=== PATIENT | female | born 1960 | race Caucasian/White ===

== ENCOUNTER 2016-04-06 01:25 | Inpatient (IN) | payer OTHER ==
--- NOTE | 2016-04-04 14:06 | History & Physical Pre-Op ---
General Information and HPI History of Present Illness: patient presents for evaluation of diverticulitis. She relates a 1 year history of slowly progressive left lower quadrant abdominal pain and worsening constipation. In the past 9 months she has required multiple medications to improve her bowel function. She complains of intermittent left lower quadrant abdominal pain that is relieved with bowel movements. In the past few months she 's had 2 episodes of severe pain that were responsive to treatment empirically with oral antibiotics for diverticulitis. She has undergone 2 [address] scans in the past year both of which show severe diverticulosis without active inflammatory changes, both of which were personally reviewed. She had a colonoscopy last year which showed a focal angulation in her sigmoid colon. Follow-up colonoscopy three months ago showed sigmoid stricture at the area of angulation with evidence of active inflammation. Biopsies were benign. Allergies/Medications Allergies: Coded Allergies: acetaminophen (From PERCOCET) (UNKNOWN 03/31/16) codeine (NAUSEA, TIGHT CHEST 03/31/16) hydromorphone (From DILAUDID) (UNKNOWN 03/31/16) morphine (CHEST TIGHTENING 03/31/16) oxycodone (From PERCOCET) (UNKNOWN 03/31/16) Home Med list Albuterol Sulfate (Albuterol Sulfate Hfa) 0.09 MG/Actuation DAVID 2 PUFF INH Q4- 6 PRN PRN SHORTNESS OF BREATH (Reported) 90 MCG PER PUFF Atorvastatin Calcium (Lipitor) 10 MG TAB 1 TAB PO DAILY CHOLESTEROL (Reported ) Budesonide/Formoterol Fumara (Symbicort 160-4.5 Mcg Inhaler) 160 MCG/4.5 MCG PUF 2 PUF INH BID BREATHING PROBLEMS (Reported) Diazepam 10 MG TABLET 1 TAB PO BID ANXIETY (Reported) Escitalopram Oxalate 20 MG TAB 1 TAB PO DAILY MENTAL HEALTH (Reported) Hydrochlorothiazide (Hydrodiuril 12.5 MG Tab) 12.5 MG HTAB 1 CAP PO DAILY HEART (Reported) Hydroxyzine Pamoate (Vistaril) (Unknown Strength) CAPSULE 50 MG PO AD PRN ITCHING (Reported) Levothyroxine Sodium 137 MCG TABLET 1 TAB PO DAILY THYROID (Reported) Lisinopril 10 MG TAB 1 TAB PO DAILY HEART (Reported) Multivitamin (Multi-Day Vitamins) 1 EACH TABLET 1 TAB PO DAILY SUPPLEMENT ( Reported) [place]-3S/Dha/Epa/Fish Oil (Fish Oil 1,200 MG Softgel) (Unknown Strength) CAPSULE (Unknown Dose) PO DAILY SUPPLEMENT (Reported) Omeprazole 40 MG CAPSULE.DR 1 CAP PO DAILY GERD (Reported) Pantoprazole Sodium 40 MG TABLET.DR 1 TAB PO DAILY GERD (Reported) Tiotropium [place] (Spiriva) 18 MCG CAP 1 CAP INH DAILY BREATHING PROBLEMS ( Reported) Past History Medical History Neurological: NONE EENT: NONE Cardiovascular: hypertension, hyperlipidemia Respiratory: COPD Gastrointestinal: colitis, ACID REFLUX Hepatic: cholelithiasis Renal: NONE Musculoskeletal: NONE Psychiatric: anxiety, depression Endocrine: hypothyroidism, obesity Blood Disorders: NONE Cancer(s): NONE 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 She reports no fatigue, no fever, no night sweats, no significant weight loss, and no exercise intolerance. She reports no abnormal moles, no jaundice, no hives, no eczema, and no rashes. She reports no swollen glands and no neck stiffness. She reports no cough, no wheezing, no shortness of breath, and no coughing up blood. She reports no chest pain, no arm pain on exertion, no shortness of breath when walking, no shortness of breath when lying down, no palpitations, and no leg swelling. She reports no incontinence, no difficulty urinating, no hematuria, and no increased frequency. She reports no muscle aches, no muscle weakness, no arthralgias/joint pain, and no back pain. She reports no gynecologic complaints. She reports no issues with sexual function or body image. Exam & Diagnostic Data Physical Exam: Patient is a 55-year-old female. Constitutional: General Appearance: healthy-appearing and morbidly obese. Level of Distress: no acute distress. Ambulation: ambulating normally. Head: Head: normocephalic and atraumatic. Neck: Neck: supple, trachea midline, no masses, and full range of motion. Thyroid: no enlargement or nodules and non-tender. Lymph Nodes: no cervical LAD, supraclavicular LAD, axillary LAD, or inguinal LAD. Cardiovascular: Heart Auscultation: normal S1 and S2; no murmurs, rubs, or gallops; and regular rate and rhythm. Lungs: Respiratory effort: no dyspnea. Percussion: no dullness, flatness, or hyperresonance. Auscultation: no wheezing, rales/crackles, or rhonchi and breath sounds normal, good air movement, and clear to auscultation. Back: Thoracolumbar Appearance: normal curvature. Abdomen: Inspection and Palpation: no tenderness, guarding, masses, rebound tenderness, or CVA tenderness and soft and non-distended. Bowel Sounds: normal. Liver: non-tender and no hepatomegaly. Spleen: non-tender and no splenomegaly. Hernia: none palpable. Skin: Inspection and palpation: no rash, lesions, ulcer, induration, nodules, jaundice, or abnormal nevi and good turgor. Musculoskeletal:: Extremities: no cyanosis, edema, varicosities, or palpable cord. Motor Strength and Tone: normal tone and motor strength. Joints, Bones, and Muscles: no contractures, malalignment, tenderness, or bony abnormalities and normal movement of all extremities. Psychiatric: Insight: good judgement and insight. Mental Status: normal mood and affect and active and alert. Orientation: to time, place, and person. Memory: recent memory normal and remote memory normal. Assessment/Plan Assessment/Plan: Diverticulitis of sigmoid colon - she likely has chronic low-grade disease which has progressed to colonic stricture. Majority of her symptoms are related to stricture and difficulty in passage of stool. There is likely underlying chronic diverticulitis as to the etiology. I recommend sigmoid colectomy, as she will likely develop colonic obstruction. The approach would be best performed laparoscopically although given her body habitus and chronic inflammatory changes conversion rate to open would be higher than usual. She would like to postpone surgery until after the upcoming holidays. We will plan for her operation to proceed in late March Discussion Notes Discussed the risk of surgery including but not limited to: bleeding requiring transfusion, infection, anastomotic leak requiring reoperation as well as medical complications including cardiac, pulmonary and thromboembolism. As Ranked By This Provider Problem List: 1. Diverticulitis large intestine w/o perforation or abscess w/o bleeding
[~2016-04-06] VITALS: Ht 165.1 cm; Wt 102.1 kg
[~2016-04-06 01:25] MED LIST: ALBUTEROL0.09 MG/A1 INH; ATIVAN1 MG PO; ATORVASTATIN CA10 MG PO; DIAZEPAM10 M1 PO; ESCITALOPRAM20 MG PO; FISH OIL 1,2001 EAC2 PO; HYDROCODONE/ACE1 TA1 PO; HYDRODIURIL 112.5 M1 PO; IBU600 MG PO; LEVOTHYROXIN0.125 MG PO; LEVOTHYROXINE137 MCG PO; LISINOPRIL10 MG PO; MULTI-DAY VITA1 EACH PO; OMEPRAZOLE40 M1 PO; PANTOPRAZOLE SO40 M1 PO; SPIRIVA 18 MCG18 MCG INH; SYMBICORT 160/41 PUF INH; TRAMADOL50 MG PO; VICODIN 5-3001 EACH PO; VISTARIL50 M1 PO
--- NOTE | 2016-04-06 13:34 | Admission Core Measures ---
Admission Meds I reviewed the following Meds: Current Medications Sig/Yue Start time Last Medication Dose Stop Time Status Admin Cefazolin Sodium 2,000 MG ONCE 04/06 NR (Kefzol-Ancef Inj) 04/06 2358 Metronidazole 500 MG ONCE 04/06 NR (Flagyl) 04/06 2358 Sodium Chloride 100 ML (Normal Saline 0.9%) Acute Coronary Syndrome Inclusion Criteria ACS Diagnosis No Inpatient Core Measures LDL Reminder: If No, please order W/I first 24hr of stay Congestive Heart Failure Inclusion Criteria CHF Diagnosis No Cerebrovascular accident Inclusion Criteria CVA/TIA Diagnosis No Inpatient Core Measures Bedside Swallow Eval Reminder: If BSE failed, place ST order Antithrombotic Reminder: Order Antithrombotic Medication by end of day 2 Antithrombotic Reminder: Document Reason Antithrombotic Not ordered by end of day 2 AFIB/Flutter Reminder: If Present, add to problem list AFIB/Flutter Reminder: Order Anticoag Medication for pts with AFIB/Flutter Atherosclerosis Reminder: If Present, add to problem list LDL Reminder: If No, please order W/I first 24hr of stay PT Order Reminder: If No, please order Venous thromboembolism Inpatient Core Measures VTE Risk Factors: Age > 40, Obesity, Surgery VTE Prophylaxis Ordered Inpt Mech & Pharm No Mech VTE prophylaxis d/t No contraindications No VTE Pharm Prophylaxis d/t No contraindications Inclusion Criteria - Per Current guidelines, there needs to be overlap - treatment for the first 5 days of Warfarin therapy. - Parenteral Anticoagulation (IV or SC) needs to be - given along with Warfarin therapy. VTE Diagnosis No VTE Type NONE VTE Confirmed by (Test) NONE Problem List As ranked by this Provider includes Assessment & Plan 1. Hyperlipidemia 2. Hypertension 3. Diverticulitis large intestine w/o perforation or abscess w/o bleeding 4. COPD (chronic obstructive pulmonary disease) 5. GERD (gastroesophageal reflux disease) 6. S/P laparoscopic colectomy HOME MEDS Home Med List Albuterol Sulfate (Albuterol Sulfate Hfa) 0.09 MG/Actuation DAVID 2 PUFF INH Q4- 6 PRN PRN SHORTNESS OF BREATH (Reported) Atorvastatin Calcium (Lipitor) 10 MG TAB 1 TAB PO DAILY CHOLESTEROL (Reported ) Budesonide/Formoterol Fumara (Symbicort 160-4.5 Mcg Inhaler) 160 MCG/4.5 MCG PUF 2 PUF INH BID BREATHING PROBLEMS (Reported) Diazepam 10 MG TABLET 1 TAB PO BID ANXIETY (Reported) Escitalopram Oxalate 20 MG TAB 1 TAB PO DAILY MENTAL HEALTH (Reported) Hydrochlorothiazide (Hydrodiuril 12.5 MG Tab) 12.5 MG HTAB 1 CAP PO DAILY HEART (Reported) Hydroxyzine Pamoate (Vistaril) (Unknown Strength) CAPSULE 50 MG PO AD PRN ITCHING (Reported) Levothyroxine Sodium 137 MCG TABLET 1 TAB PO DAILY THYROID (Reported) Lisinopril 10 MG TAB 1 TAB PO DAILY HEART (Reported) Multivitamin (Multi-Day Vitamins) 1 EACH TABLET 1 TAB PO DAILY SUPPLEMENT ( Reported) [place]-3S/Dha/Epa/Fish Oil (Fish Oil 1,200 MG Softgel) (Unknown Strength) CAPSULE (Unknown Dose) PO DAILY SUPPLEMENT (Reported) Omeprazole 40 MG CAPSULE.DR 1 CAP PO DAILY GERD (Reported) Pantoprazole Sodium 40 MG TABLET.DR 1 TAB PO DAILY GERD (Reported) Tiotropium [place] (Spiriva) 18 MCG CAP 1 CAP INH DAILY BREATHING PROBLEMS ( Reported)
--- NOTE | 2016-04-06 16:11 | Operative Report ---
Operative/Inv Procedure Report Surgery Date: 04/06/16 Name of Procedure: Laparoscopic sigmoid colectomy Pre-Operative Diagnosis: Chronic diverticulitis Post-Operative Diagnosis: Same Estimated Blood Loss: scant Surgeon/Billing Assistant: MARKEL GANNON,TIM Bach/Nikole MATTA Anesthesia: general endotracheal tube Specimens: Sigmoid colon Condition: Good Operative/Procedure Note Note: Patient brought to the operative laid supine. Total anesthesia was obtained, she's placed in lithotomy position and her abdomen was prepped and draped. The skin above the umbilicus was after local anesthesia and a longitudinal incision made sharply. We dissected down the fascia and grasped it with Jj's. Fasciotomies crated sharply and stay sutures placed. A blunt Smith port was placed. Pneumoperitoneum was achieved. A 5 mm port was placed in the suprapubic region, a 5 mm port was placed in the right mid abdomen, and a 12 mm port was placed in the right lower quadrant all under direct vision and after local anesthesia was instilled. He was placed in Trendelenburg and rotated towards the right. The small bowel was swept up out of the pelvis. Distal sigmoid colon was adherent to the pelvic structures with was wispy inflammatory adhesions. These were taken down with cautery. There was a nodularity of the area in question, associated with fibrosis and thickening. It was limited to a 5-6 cm segment of distal sigmoid colon. We therefore marked areas distal and proximal to denote normal bowel. Mesentery was then scored medially to serve as a line of transection. We then took down the white line of Toldt with electrocautery. Left ureter was identified and preserved throughout its course. We took the dissection down to the pelvis and then up to the level of the splenic flexure. Splenic flexure was not taken down. There was plenty of colon to create an end and anastomosis without attention. Therefore scored the mesentery and took down the mesentery up to the proximal transection margin level of the bowel. This was performed with the LigaSure device. I then took down the sigmoidal arteries as they coursed down into the pelvis. The mesentery was then divided up to the rectosigmoid junction with the LigaSure device. The rectosigmoid junction was then divided with a ROSARIO 45 stapler. We then removed bring up the cut end of the bowel and then bring down were were the proposed anastomotic site proximally to ensure that we had adequate length. We did. Therefore this time a small Pfannenstiel incision was made sharply and subcutaneous tissues were dissected with cautery. The fascia was incised longitudinally in the midline and a Jonathan retractor placed. The bowel was brought up through the wound and transected with stapler. Specimen was passed off the field. The automatic pursestring was placed staple line cut. We then open the bowel and sized it to a 28 mm EEA. The ampules placed and pursestring tied down. The fatty tissue overlying the proposed anastomotic site was then taken off with cautery. A single diverticulum was brought up into the center of the pursestringer to get out of the anastomotic site. We then replaced the bowel back in the peritoneal cavity and closed the fascia with a running 0 Maxon suture. Pneumoperitoneum was then reachieved. I went down below and performed rigid proctoscopy. We then brought the EEA stapler up through the rectum to the rectal stump. An end-to-end anastomosis was then created. There were 2 intact donuts. The anastomosis was tested under water and there is no evidence of gas leak. I then scrubbed back in and irrigated the peritoneal cavity. Hemostasis was adequate. The 12 mm ports were closed with 0 Vicryl suture. Skin incisions closed with 4-0 Vicryl. Steri-Strips and sterile dressing applied. Sponge and needle counts are correct Findings: Focal chronic inflammation of the distal sigmoid colon CC: BROOKE GANNON,RYAN Piedra; CHANTELL GANNON,MANDI Polo
[2016-04-06 17:45] VITALS: BP 116/70
--- NOTE | 2016-04-06 17:45 | NUR ---
PT ARRIVED TO ROOM 229-2 AT 1745 VIA STRETCHER FROM PACU. UPON ARRIVAL, PT A/V/OX3. [place] DRESSING TO LOWER ABD AND 3 BANDAIDS TO ABD, INTACT. PT DENIES ANY PAIN AT THIS TIME. BOTTOM INTACT. LUNGS CLEAR. VSS. #20 LH INFUSING WITH D51/2NS 20 MEQK PER EMAR. HOUSE PATENT AND DRAINING CLEAR, YELLOW URINE TO GRAVITY. FAMILY AT BEDSIDE. WILL CONTINUE TO MONITOR.
--- NOTE | 2016-04-06 18:31 | NUR ---
CHARGE NURSE AND CHAINSTITCH SEAT JOINER AWARE OF AMOUNT OF VISITORS IN PATIENTS ROOM. CHARGE NURSE IN TO SPEAK WITH FAMILY ABOUT IMPORTANCE OF PATIENT'S CARE AND IMPORTANCE OF PT BEING ABLE TO PARTICIPATE IN CARE WITHOUT DISRUPTIONS. PT AND VISITORS UNDERSTAND POC. WILL CONTINUE TO MONITOR.
[2016-04-06 19:54] VITALS: BP 114/80
--- NOTE | 2016-04-06 20:23 | NUR ---
PT STATES SHE IS IN PAIN 08/20 IN HER ABD. PT EDUCATED ON PAIN MEDICATIONS ORDERED FOR HER. PT STATING "I DONT WANT IV TYLENOL OR IV DILAUDID SO DONT BRING THOSE IN" "I WAS TOLD I CAN HAVE WHAT I HAD DOWNSTAIRS UP HERE, CALL THE DOCTOR AND GET IT ORDERED FOR ME" SURG PAXTON LAY NOTIFIED. NEW ORDERS FOR DEMEROL ACKNOWLEDGED. PT AWARE. WILL CONTINUE TO MONITOR.
--- NOTE | 2016-04-06 20:31 | NUR ---
VERIFIED DEMEROL ORDER WITH PHARMACY. PER PHARMACY, OK TO GIVE IV PUSH WHEN DILUTED PER INSTRUCTIONS ON EMAR. WILL CONTINUE TO MONITOR.
--- NOTE | 2016-04-06 21:10 | PN- General Surgery ---
Subjective Subjective: poc s/p lap assist sigmoid colectomy sitting up in bed no major complaints denies cp, sob, no n+v with clears Objective Vital Signs and I&Os Vital Signs Date Time Temp Pulse Resp B/P Pulse O2 O2 Flow FiO2 Ox Delivery Rate 04/06 1953 97.7 94 20 114/80 92 Room Air 04/06 1744 97.5 96 18 116/70 93 Nasal 2.0L Cannula 04/06 1744 93 Nasal 2.0L Cannula Physical Exam: cv: rrr lungs: clear abd: soft, obese no guarding to palp drsg dry ext; warm, no edema distal cms intact shah: clear urine Assessment/Plan Assessment/Plan surgical stable refusing all pain meds except demoral plan cont clears ok to be oob to chair demoral iv for pain tonight will discuss po options in am Core Measures/Miscellaneous Venous Thromboembolism VTE Risk Factors: Age > 40, Obesity, Surgery VTE Contraindications: No Contraindications VTE Prophylaxis Ordered Inpt Mech & Pharm VTE Diagnosis: No VTE Type: NONE VTE Confirmed by (Test): NONE Beta Epifanio Is Beta Epifanio a Home Med? No Antibiotics Is Patient on Antibiotics? Yes
--- NOTE | 2016-04-06 21:20 | NUR ---
PT COMPLAINS OF BEING UNCOMFORTABLE BECAUSE OF THE HOUSE CATHETER. PT STATES "CAN I HAVE IT OUT, I CAN WALK TO THE BATHROOM FINE". SURG PA ROSANNE NOTIFIED OF PTS COMPLAINT. PER SURG PA, TO KEEP HOUSE IN OVERNIGHT AND REMOVE IN AM. PT AWARE OF POC. WILL CONTINUE TO MONITOR.
--- NOTE | 2016-04-06 22:18 | NUR ---
SMELL OF SMOKE COMING FROM PTS ROOM. CHARGE NURSE AWARE & IN TO ROOM. 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 TO BE LOCKED IN MED ROOM. WILL PASS ON TO NEXT SHIFT RN. WILL CONTINUE TO MONITOR.
[2016-04-06 22:32] VITALS: BP 112/70
[2016-04-07 00:37] VITALS: BP 110/70
[2016-04-07 03:43] VITALS: BP 106/66
[2016-04-07 05:45] VITALS: BP 100/60
--- NOTE | 2016-04-07 07:58 | PN- General Surgery ---
See Addendum Subjective Subjective: Awake, alert Ambulated this morning and passed gas already Wants shah out, wants to eat and go home Pain well controlled on demerol IV and toradol overnight Objective Vital Signs and I&Os Vital Signs Date Time Temp Pulse Resp B/P Pulse O2 O2 Flow FiO2 Ox Delivery Rate 04/07 0545 98.7 90 20 100/60 94 Nasal 2.0L Cannula 04/07 0343 97.7 76 16 106/66 95 Nasal 2.0L Cannula 04/07 0037 97.7 89 20 110/70 94 Nasal 2.0L Cannula 04/07 0000 Nasal 2.0L Cannula 04/06 2232 98.0 102 20 112/70 94 Nasal 2.0L Cannula 04/06 1954 97.7 94 20 114/80 92 Room Air 04/06 174 97.5 96 18 116/70 93 Nasal 2.0L Cannula 04/06 174 93 Nasal 2.0L Cannula Intake & Output 04/07 0800 04/07 0000 04/06 1600 04/06 0800 04/06 0000 04/05 1600 Intake Total 1480 1225 Output Total 850 400 Balance 630 825 Intake, IV 1000 625 Intake, Oral 480 600 Output, Urine 850 400 Patient 225 lb Weight Physical Exam: Urine output good vss, afebrile General: alert and oriented Chest: clear anteriorly bilaterally, RRR Abd: softly distended, hypoactive bs but present Wounds: dressed, dry Ext: warm, no edema Assessment/Plan Assessment/Plan 55 yo female s/p sigmoid colectomy for diverticulitis dc shah change pain meds to po demerol with IV for breakthrough - pt has numerous narcotic allergies continue valium tid as at home hep sc for dvt ppx no further abx ?advance diet - will discuss with Dr Haro Core Measures/Miscellaneous Venous Thromboembolism VTE Risk Factors: Age > 40, Obesity, Surgery VTE Contraindications: No Contraindications VTE Prophylaxis Ordered Inpt Mech & Pharm VTE Diagnosis: No VTE Type: NONE VTE Confirmed by (Test): NONE Beta Epifanio Is Beta Epifanio a Home Med? No Antibiotics Is Patient on Antibiotics? No
[2016-04-07 08:00] LABS: ABSOLUTE BASOPHIL COUNT 0 /CUMM (0.0-0.2); ABSOLUTE EOSINOPHIL COUNT 0 /CUMM (0.0-0.7); ABSOLUTE LYMPH COUNT 0.9 /CUMM (1.2-3.4); ABSOLUTE MONOCYTE COUNT 0.5 /CUMM (0.10-0.60); BASOPHIL % 0.1 % (0.0-2.0); EOSINOPHIL % 0.1 % (0-5); HEMATOCRIT 35.4 % (37-47); MEAN CORPUSCULAR HGB 29.9 PG (27.0-31.0); MEAN CORPUSCULAR HGB CONC 33.5 G/DL (33.0-37.0); MEAN CORPUSCULAR VOLUME 89.4 FL (81.0-99.0); MEAN PLATELET VOLUME 7.9 FL (7.4-10.4); PLATELET COUNT 292 /CUMM (130-400); RBC DISTRIBUTION WIDTH 15.3 % (11.5-14.5); RED BLOOD CELL CT 3.96 /CUMM (4.20-5.40); WHITE BLOOD CELL COUNT 10.4 /CUMM (4.8-10.8)
[2016-04-07 08:35] LABS: GRANULOCYTE % 86.6 % (42.2-75.2)
--- NOTE | 2016-04-07 08:39 | NUR ---
08:40 HOUSE D/C'D OUTPUT FROM HOUSE - 200 ML
[2016-04-07 13:46] VITALS: BP 114/72
--- NOTE | 2016-04-07 16:04 | NUR ---
0900 - PATIENT VOIDED 200 MLS AFTER HOUSE REMOVAL
--- NOTE | 2016-04-07 16:57 | NUR ---
PT'S SISTER REQUESTING THAT SHE TAKE THE CIGARETTES HOME WITH HER. CIGARETTES TAKEN FROM MED ROOM AND GIVEN TO SISTER TO BE TAKEN HOME. CHARGE NURSE AWARE. WILL CONTINUE TO MONITOR.
--- NOTE | 2016-04-07 17:20 | NUR ---
REPORTS THAT PT WALKED TO BATHROOM ON B SIDE AND SISTER HANDED PT A CIGARETTE, REPORTS OF SMOKE COMING FROM BATHROOM. CHARGE NURSE IN TO SEE PT. CHARGE NURSE TOOK CIGARETTES AWAY FROM PT AND LOCKED IN MED ROOM. WILL CONTINUE TO MONITOR.
[2016-04-07 22:00] VITALS: BP 112/62
[2016-04-08 06:42] VITALS: BP 118/64
--- NOTE | 2016-04-08 07:14 | PN- General Surgery ---
Subjective Subjective: Reports gas pains this morning. Tolerated some food yesterday. No nausea overnight. +bm this morning. She is passing flatus. Ambulating well. No dizziness. No shortness of breath. No chest pains. Objective Vital Signs and I&Os Vital Signs Date Time Temp Pulse Resp B/P Pulse O2 O2 Flow FiO2 Ox Delivery Rate 04/08 0642 97.6 86 20 118/64 92 04/07 2200 98.6 96 18 112/62 93 Room Air 04/07 1346 98.8 96 20 114/72 93 04/07 0924 90 128/72 04/07 0836 Nasal 2.0L Cannula 04/07 0800 97 Nasal 2.0L Cannula Intake & Output 04/08 0800 04/08 0000 04/07 1600 04/07 0800 04/07 0000 04/06 1600 Intake Total 002 603 8370 1225 Output Total 550 400 850 400 Balance 50 -280 630 825 Intake, IV 1000 625 Intake, Oral 600 120 480 600 Number 1 Bowel Movements Output, Urine 550 400 850 400 Patient 225 lb Weight Physical Exam: General - alert & oriented x 3. comfortable. no acute distress. Lungs - clear bilaterally. no w/r/r. Cardiac - s1s2. reg. Abdomen - soft. bowel sounds appreciated. incisional tenderness, as expected. dressings removed. steri strips in place. no erythema. no exudates. Extremities - warm bilaterally. no c/c/e. calves soft and nontender b/l. Assessment/Plan Assessment/Plan This 55 year old female is POD#2 s/p laparoscopic sigmoid colectomy for chronic diverticulitis to try low residue diet this morning pain controlled. asking for vicodin and motrin upon discharge dressings removed. incisions covered with steri strips colace bid added oob/ambulating well hep sc - dvt ppx f/u labs likely d/c home today if tolerating low residue diet will d/w Core Measures/Miscellaneous Venous Thromboembolism VTE Risk Factors: Age > 40, Obesity, Surgery VTE Contraindications: No Contraindications VTE Prophylaxis Ordered Inpt Mech & Pharm VTE Diagnosis: No VTE Type: NONE VTE Confirmed by (Test): NONE Beta Epifanio Is Beta Epifanio a Home Med? No Antibiotics Is Patient on Antibiotics? No
[2016-04-08] MEDS ORDERED: NORCO 5-325 TA1 EACH PO (07:30)
[2016-04-08] MEDS ORDERED: DOCUSATE SODIU100 M3 PO (07:30)
[2016-04-08] MEDS ORDERED: IBUPROFEN600 M1 PO (07:30)
--- NOTE | 2016-04-08 07:32 | Patient Discharge Instructions ---
Discharge Instructions General Discharge Information You were seen/treated for: Chronic diverticulitis You had these procedures: Surgery Date: 04/06/16 Name of Procedure: Laparoscopic sigmoid colectomy Watch for these problems: fever>101.3, increased pain, redness/swelling/drainage No bath, but you may shower: Yes Other wound care: ok to shower. leave white steris strips in place. keep incisions clean & dry. Diet Continue normal diet: Yes Recommended Diet: Low Residue Activity Full Activity/No Limits: No Activity Self Limited: Yes Pounds, do NOT lift more than: 10 Other activity limits: no heavy lifting. no strenuous activity. Additional ACTIVITY Info: walk frequently Acute Coronary Syndrome Inclusion Criteria At DC or during hospital stay patient has or had the following: ACS DIAGNOSIS No Discharge Core Measures Meds if any: Prescribed or Continued at Discharge Meds if any: NOT Prescribed or Continued at Discharge Congestive Heart Failure Inclusion Criteria At DC or during hospital stay patient has or had the following: CHF DIAGNOSIS No Discharge Core Measures Meds if any: Prescribed or Continued at Discharge Meds if any: NOT Prescribed or Continued at Discharge Cerebrovascular accident Inclusion Criteria At DC or during hospital stay patient has or had the following: CVA/TIA Diagnosis No Discharge Core Measures Meds if any: Prescribed or Continued at Discharge Meds if any: NOT Prescribed or Continued at Discharge Venous thromboembolism Inclusion Criteria VTE Diagnosis No VTE Type NONE VTE Confirmed by (Test) NONE Discharge Core Measures - Per Current guidelines, there needs to be overlap - treatment for the first 5 days of Warfarin therapy. - If discharged on Warfarin prior to 5 days of - overlap therapy, the patient will need to be - assessed for post discharge needs including - *Post discharge parental anticoagulation - *Warfarin and/or parental anticoagulation education - *Follow up date to check INR post discharge At least 5 days overlap therapy as Inpatient No Meds if any: Prescribed or Continued at Discharge Note: Overlap Therapy is Warfarin and Anticoagulant Meds if any: NOT Prescribed or Continued at Discharge
[2016-04-08 07:56] LABS: ABSOLUTE BASOPHIL COUNT 0 /CUMM (0.0-0.2); ABSOLUTE EOSINOPHIL COUNT 0.1 /CUMM (0.0-0.7); ABSOLUTE GRANULOCYTE CT 4.1 /CUMM (1.4-6.5); ABSOLUTE LYMPH COUNT 2.2 /CUMM (1.2-3.4); ABSOLUTE MONOCYTE COUNT 0.5 /CUMM (0.10-0.60); BASOPHIL % 0.6 % (0.0-2.0); EOSINOPHIL % 1.2 % (0-5); GRANULOCYTE % 59.1 % (42.2-75.2); HEMATOCRIT 31.3 % (37-47); MEAN CORPUSCULAR HGB 30.1 PG (27.0-31.0); MEAN CORPUSCULAR HGB CONC 33.9 G/DL (33.0-37.0); MEAN CORPUSCULAR VOLUME 88.9 FL (81.0-99.0); MEAN PLATELET VOLUME 8.3 FL (7.4-10.4); PLATELET COUNT 246 /CUMM (130-400); RBC DISTRIBUTION WIDTH 15.8 % (11.5-14.5); RED BLOOD CELL CT 3.52 /CUMM (4.20-5.40); WHITE BLOOD CELL COUNT 6.9 /CUMM (4.8-10.8)
[2016-04-08 09:31] VITALS: BP 118/64
--- NOTE | 2016-04-08 12:32 | Surg Short-stay <48hrs Dis Sum ---
Visit Information Visit Dates Admission Date: 04/06/16 Discharge Date: 04/08/16 Surgical Short Stay DC Summary Admission Diagnosis: Chronic diverticulitis Final Diagnosis: same Procedure(s): laparoscopic sigmoid colectomy Summary/Significant Findings: short lived ileus. diet advanced. ambulatory. bowel function returned with bowel movement day of discharge. Condition at Discharge: good Discharge Disposition: home or self care Discharge instructions provided to patient/family: Yes Post discharge follow-up plan: 2 weeks as arranged
== END 2016-04-08 12:24 | DRG 221 ==
LOC: ENRESERVTM → ENRESERVDT → 2NA 01:25 → SDA 01:25 → ENPENDDIS 01:25 → SDA 07:00 → 2NA 17:32
PROVIDERS: Physician Assistant; Physician Assistant Surgical; ADMIT Surgery
PROC: 0DTN4ZZ Resection of Sigmoid Colon, Percutaneous Endoscopic Approach (ICD-10-PCS; principal; 2016-04-06)
DX: K57.32 Diverticulitis of large intestine without perforation or abscess without bleeding (principal); J44.9 Chronic obstructive pulmonary disease, unspecified; I10 Essential (primary) hypertension; E66.01 Morbid (severe) obesity due to excess calories; Z68.37 Body mass index [BMI] 37.0-37.9, adult; E03.9 Hypothyroidism, unspecified; F41.9 Anxiety disorder, unspecified
CPT/HCPCS: 2NASP; 36415; 82436; 87086; 88304; 88307; 93005; 93010; J0131; J0690; J1100; J1170; J1644; J1885; J2175; J2405; J3490; J7042; S5012